=== PATIENT | female | born 1990 | race Caucasian/White ===

== ENCOUNTER 2019-02-12 17:46 | Emergency (ER) | payer OTHER ==
[2019-02-12 19:32] VITALS: PULSE 87; RESP 18
--- NOTE | 2019-02-12 19:42 | ED ---
General Adult HPI - General Chief complaint: Needlestick/Exposure Stated complaint: NEEDLE STICK-IHS Time Seen by Provider: 02/12/19 19:02 Source: patient, RN notes reviewed, old records reviewed Mode of arrival: ambulatory Limitations: no limitations - History of Present Illness Initial comments: 28-year-old female patient presents ED chief complaint of needle stick injury to left finger. Patient ports that she had just administered IM injection, actually scraped herself with the tip of the needle. This was a hollow needle. No puncture injection, however this did draw blood. Patient reports that she vigorously irrigated the wound afterwards. Patient states that tetanus is up-to-date. Denies any other complaints. Systemic: Pt denies fatigue, fever/chills, rash. Pt denies weakness, night sweats, weight loss. Neuro: Pt denies headache, visual disturbances, syncope or pre-syncope. HEENT: Pt denies ocular discharge or irritation, otalgia, rhinorrhea, pharyngitis or notable lymphadenopathy. Cardiopulmonary: Pt denies chest pain, SOB, heart palpitations, dyspnea on exertion. Abdominal/GI: Pt denies abdominal pain, n/v/d. : Pt denies dysuria, burning w/ urination, frequency/urgency. Denies new onset urinary or bowel incontinence. MSK: Pt denies myalgia, loss of strength or function in extremities. Neuro: Pt denies new onset weakness, paresthesias. - Related Data Home Medications Medication Instructions Recorded Confirmed Hydrochlorothiazide 12.5 mg PO DAILY 02/12/19 02/12/19 Allergies Allergy/AdvReac Type Severity Reaction Status Date / Time bacitracin [From Cortisporin] Allergy Rash/Hives Verified 02/12/19 19:33 cefaclor [From Ceclor] Allergy Rash/Hives Verified 02/12/19 19:33 hydrocortisone Allergy Rash/Hives Verified 02/12/19 19:33 [From Cortisporin] neomycin [From Cortisporin] Allergy Rash/Hives Verified 02/12/19 19:33 nitrofurantoin Allergy Rash/Hives Verified 02/12/19 19:33 [From Macrobid] polymyxin B Allergy Rash/Hives Verified 02/12/19 19:33 [From Cortisporin] shellfish derived [Shrimp] Allergy Rash/Hives Verified 02/12/19 19:33 Review of Systems ROS Statement: Those systems with pertinent positive or pertinent negative responses have been documented in the HPI. ROS Other: All systems not noted in ROS Statement are negative. Past Medical History Past Medical History: Hypertension History of Any Multi-Drug Resistant Organisms: None Reported Past Surgical History: No Surgical Hx Reported Past Psychological History: No Psychological Hx Reported Smoking Status: Never smoker Past Alcohol Use History: None Reported Past Drug Use History: None Reported General Exam - General Exam Comments Initial Comments: Constitutional: NAD, AOX3, Pt has pleasant affect. HEENT: NC/AT, trachea midline, neck supple, no lymphadenopathy. Posterior pharynx non erythematous, without exudates. External ears appear normal, without discharge. Mucous membranes moist. Eyes PERRLA, EOM intact. There is no scleral icterus. No pallor noted. Cardiopulmonary: RRR, no murmurs, rubs or gallops, no JVD noted. Lungs CTAB in anterior and posterior ly. No peripheral edema. Abdominal exam: Abdomen soft and non-distended. Abdomen non-tender to palpation in all 4 quadrants. Bowel sounds active in LLQ. No hepatosplenomegaly. No ecchymosis Neuro: CN II-XII grossly intact. No nuchal rigidity. No raccon eyes, no solomon sign, no hemotympanum. No cervical spinal tenderness. MSK: No posterior calf tenderness bilaterally, homans sign negative bilaterally. Posterior tibialis and radial pulse +2 bilaterally. Sensation intact in upper and lower extremities. Full active ROM in upper and lower extremities, 5/5 stregnth. Finger examined, very small abrasion noted. Limitations: no limitations Course Vital Signs 02/12/19 19:00 Temperature 98.0 F Pulse Rate 87 Respiratory 18 Rate Blood Pressure 154/94 O2 Sat by Pulse 99 Oximetry Medical Decision Making - Medical Decision Making 28-year-old female patient presents to ED for needle stick injury. Patient was in stable, afebrile. Patient tetanus up-to-date. Patient denies prophylaxis. Patient contacted with results of negative rapid HIV. Case discussed with Dr. Smith. Disposition Clinical Impression: Needlestick injury accident Disposition: HOME SELF-CARE Condition: Stable Instructions (If sedation given, give patient instructions): Postexposure Prophylaxis (ED) Additional Instructions: Follow up with PCP tomorrow, return to ER if condition worsens. Is patient prescribed a controlled substance at d/c from ED?: No Referrals: Kenroy Ozuna MD [Primary Care Provider] - 1-2 days
[2019-02-12 21:39] VITALS: BP 145/93; TEMP 97.3
[2019-02-13 07:57] LABS: HIV 1 AB Non-Reactive; HIV 2 AB Non-Reactive; HIV AB P24 Non-Reactive; HIV P24 AG Non-Reactive
[2019-02-13 08:02] LABS: Hepatitis B Surface AB- Quant 605.4
[2019-02-13 08:03] LABS: Hepatitis B Surface Antibody REACTIVE *; Hepatitis C IgG Antibody Non-Reactive
== END 2019-02-12 20:00 | disposition home or self-care (01) ==
LOC: EC 17:46
DX: S60.411A Abrasion of left index finger, initial encounter (principal); I10 Essential (primary) hypertension; Z79.899 Other long term (current) drug therapy; Z88.1 Allergy status to other antibiotic agents; Z88.8 Allergy status to other drugs, medicaments and biological substances; Z91.013 Allergy to seafood; W46.0XXA Contact with hypodermic needle, initial encounter; Y93.89 Activity, other specified; Y99.0 Civilian activity done for income or pay
CPT/HCPCS: 36415; 86706; 86803; 87390; 99283